=== PATIENT | male | born 1990 | race Caucasian/White ===

== ENCOUNTER 2021-05-16 18:50 | Emergency (ER) | payer OTHER, SELFPAY ==
[2021-05-16 18:55] VITALS: BP 142/84; PULSE 83; RESP 18; TEMP 36.3; O2SAT 99; BMI 33.9
--- NOTE | 2021-05-16 19:05 | DI.RAD.S_ITS ---
PROCEDURE: XR FOOT RT MIN 3V INDICATIONS: lateral foot pain TECHNIQUE: 3 views of the foot were acquired. COMPARISON: None. FINDINGS: Bones: There is a nondisplaced proximal 4th metatarsal fracture. No intra-articular extension. Soft tissues: No tibiotalar joint effusion. Achilles tendon appears normal. IMPRESSION: Nondisplaced proximal 4th metatarsal fracture Dictated by: Kelli Márquez M.D. on 05/16/2021 at 19:55 Approved by: Kelli Márquez M.D. on 05/16/2021 at 19:56
--- NOTE | 2021-05-16 19:05 | ED.LOWEXIN ---
HPI - Extremity Injury (Lower) General Chief Complaint: Extremity Injury, Lower Stated Complaint: RIGHT FOOT HEARD HUGE POP HURTS Time Seen by Provider: 05/16/21 18:56 Source: patient Mode of arrival: Ambulatory Limitations: no limitations History of Present Illness HPI Narrative: Patient is a 31-year-old male who presents with right foot pain. He was in his kitchen when he heard a pop near his little toe on the bottom It hurts ambulating but he is able to do so. No other injury. He has no numbness or tingling. He has not taken anything for pain. Related Data Previous Rx's Medication Instructions Recorded hydrocodone 5 mg-acetaminophen 325 1 tab PO Q6H PRN #10 tab 05/16/21 mg tablet Allergies Allergy/AdvReac Type Severity Reaction Status Date / Time No Known Drug Allergies Allergy Verified 05/16/21 18:57 Review of Systems Review of Systems Narrative: GENERAL: Denies chills,fever HEENT: Denies throat pain RESPIRATORY: Denies dyspnea, cough, wheezing CARDIOVASCULAR: Denies chest pain, palpitations GASTROINTESTINAL: Denies nausea, vomiting MUSCULOSKELETAL: See HPI SKIN: No rash, no laceration, no pruritus NEUROLOGIC: Denies weakness, dizziness, headache, numbness 8 point review of systems is negative except for those stated above and HPI Patient History Social History Smoking Status: Former smoker Smoking Status: Former smoker alcohol intake frequency: 0-2 drinks per day Substance Use Type: does not use Exam Initial Vital Signs Initial Vital Signs: Vital Signs Temperature 97.4 F L 05/16/21 18:55 Pulse Rate 83 05/16/21 18:55 Respiratory Rate 18 05/16/21 18:55 Blood Pressure 142/84 H 05/16/21 18:55 Pulse Oximetry 99 05/16/21 18:55 GENERAL: Alert well-appearing 31-year-old male CARDIOVASCULAR: peripheral pulses in tact, cap refill <2 sec RESPIRATORY: No respiratory distress, speaks in full sentences without difficulty EXTREMITIES: Normal range of motion, no clubbing or edema. Neurovascularly intact Right foot no contusions swelling or erythema. No significant tenderness over 5th toe. Tenderness more over 4th metatarsal with out obvious bony deformity. Distal pedal pulse intact. Normal ankle Achilles intact. Able to flex and extend big toe against resistance NEUROLOGICAL: Cranial nerves II through XII grossly intact. Normal gait and speech. SKIN: Warm, dry, no petechiae, no rashes or lesions. Procedures Orthopedic Splinting/Casting Injury #1: Side: right Lower Extremity Injury Location: toe (4th metatarsal) Lower Extremity Immobilizer: posterior splint Post splinting neuro exam: intact Post splinting vascular exam: intact Placed by: Nursing Course Orders Ordered: ED Orders 05/16/21 19:05 XR foot RT min 3V Stat Discontinued Medications Hydrocodone Bitart/Acetaminophen (Hydrocodone/Acet 5/325 Prepack) 1 bottle MISC SEEINSTR ONE Stop: 05/16/21 20:39 Last Admin: 05/16/21 20:48 Dose: 1 bottle Documented by: JARRELL Vital Signs Vital signs: Vital Signs - 8 hr 05/16/21 18:55 Temperature 97.4 F L Pulse Rate 83 Respiratory Rate 18 Blood Pressure 142/84 H Pulse Oximetry 99 [facility] - Extremity Injury (Lower) Imaging Data Extremity x-ray #1: Radiologist's Impression: PROCEDURE:? XR FOOT RT MIN 3V ? INDICATIONS:? lateral foot pain ? TECHNIQUE:? 3 views of the foot were acquired.? ? COMPARISON:? None. ? FINDINGS:? ? Bones:? There is a nondisplaced proximal 4th metatarsal fracture.? No intra-articular extension. ? Soft tissues:? No tibiotalar joint effusion.? Achilles tendon appears normal.? ? ? IMPRESSION:? Nondisplaced proximal 4th metatarsal fracture ? ? Dictated by: Kelli Márquez M.D. on 05/16/2021 at 19:55 ? ? Approved by: Kelli Márquez M.D. on 05/16/2021 at 19:56 ? [facility] Narrative Medical decision making narrative: Patient is found to have nondisplaced 4th metatarsal fracture. Patient is placed in a posterior splint given crutches instructed not to weightbear. He needs to follow up with Orthopedics. He may also require a note for work restrictions. Discharge Plan Departure Patient Disposition: Home Clinical Impression: Closed fracture of fourth metatarsal bone Qualifiers: Encounter type: initial encounter Fracture alignment: nondisplaced Laterality: right Qualified Code(s): S92.344A - Nondisplaced fracture of fourth metatarsal bone, right foot, initial encounter for closed fracture Instructions: DI for Toe Fracture Activity Restrictions/Additional Instructions: *You have been diagnosed with right 4th toe fracture *What to do: Keep splint on at all times. Use crutches do not is put weight on foot. May elevate and ice as needed. This will take 6-8 weeks to heal *Continue to take medications as directedSENT TO [facility]ON[facility] Tylenol 1000 mg every 6 hours if needed for pain (no more than 4000 mg in 1 day and no more than 1000mg at 1 time) [place] 1 tab every 6 hours if needed for severe pain (this has 325 mg of Tylenol in it, see above instructions *Follow up with your primary care provider in 2-3 days Call orthopedics tomorrow to schedule follow-up appointment *Return to ER if you should have increasing pain swelling numbness tingling any new, worsening or concerning symptoms CONTROLLED SUBSTANCE DISCHARGE (Narcotoic/benzodiazepine/Flexeril/Phenergan) 1. You have been prescribed narcotic medications, it does have acetaminophen/Tylenol/paracetamol in it, DO NOT TAKE MORE THAN 4,00mg in 24 hours of Tylenol. TRAMADOL DOES NOT CONTAIN TYLENOL 2. Please understand that we cannot provide further refills of narcotics, benzodiazepines or controlled substances through the ED and her pain management will need to be through your provider. 3. While on these medications you cannot drive or operate heavy machinery. 4. You cannot sign legal documents or perform any duties such as this. 5. As long as you're taking opiate pain medications he should also be taking a stool softener such as Colace, Dulcolax, MiraLAX or prune juice, to help avoid constipation. Prescriptions: New hydrocodone-acetaminophen 5-325 mg tablet 1 tab PO Q6H PRN (Reason: pain) Qty: 10 RF: 0 Referrals: [facility] [Provider Group] Merged With [facility] [Outside]
[2021-05-16] MEDS: HYDROCODONE/ACET 5/325 PREPACK 1 BOTTLE MISC (20:48)
== END 2021-05-16 20:48 | disposition home or self-care (01) ==
PROVIDERS: Emergency Provider Emergency Medicine
DX: S92.344A Nondisplaced fracture of fourth metatarsal bone, right foot, initial encounter for closed fracture (principal)
CPT/HCPCS: 73630; 99283

== ENCOUNTER → 2022-07-14 15:18 | Outpatient (CLI) | payer OTHER, SELFPAY ==
[2022-07-14 16:21] LABS: Add Manual Diff / Slide Review NO; Basophils Absolute Auto 0 /uL (0-100); Basophils Percent Auto 0.5 % (0-2); Eosinophils Absolute Auto 100 /uL (0-450); Eosinophils Percent Auto 1.7 % (2-4); Hematocrit 45.7 % (41-53); Hemoglobin 15.2 g/dL (13.5-17.5); Lymphocytes Absolute Auto 2000 /uL (1100-4500); Lymphocytes Percent Auto 24.5 % (25-40); Mean Corpuscular HGB Conc 33.2 % (30-36); Mean Corpuscular Hemoglobin 31.4 PG (26-34); Mean Corpuscular Volume 94.6 fL (80-100); Monocytes Absolute Auto 600 /uL (0-900); Monocytes Percent Auto 7.4 % (3-14); Neutrophils Absolute Auto 5300 /uL (1500-7000); Neutrophils Percent Auto 65.9 % (50-75); Platelet Count 304 X10^3/uL (150-400); Red Blood Cell Count 4.83 X10^6/uL (4.5-5.9); Red Cell Distribution Width 13.7 % (11.6-14.8)
[2022-07-14 16:36] LABS: Alanine Aminotransferase 23 IU/L (<50); Albumin 4.8 g/dL (3.5-5.0); Albumin Globulin Ratio 1.4 (1.0-2.8); Alkaline Phosphatase 77 U/L (38-126); Aspartate Aminotransferase 37 IU/L (17-59); BUN Creatinine Ratio 21.3 (6-22); Bilirubin Total 0.5 mg/dL (0.2-1.3); Blood Urea Nitrogen 17 mg/dL (9-20); Calcium 9.5 mg/dL (8.4-10.2); Carbon Dioxide 32 mmol/L (22-32); Chloride 100 mmol/L (98-107); Cholesterol 171 mg/dL (140-199); Estimated Glomerular Filt Rate > 60 mL/min (>60); Globulin 3.4 g/dL (1.7-4.1); Glucose 88 mg/dL (70-100); HDL Cholesterol 81 mg/dL (40-60); HEMOLYSIS 20 (0-50); LDL Cholesterol Calculated 76 mg/dL (<100); Potassium 4.1 mmol/L (3.4-5.1); Sodium 142 mmol/L (137-145); Total Protein 8.2 g/dL (6.3-8.2); Triglycerides 69 mg/dL (35-150)
[2022-07-14 17:20] LABS: TSH w/ Reflex to FT4 0.68 uIU/mL (0.47-4.68)
[2022-07-22 12:36] LABS: Percent Free Testosterone 2.72 % (1.50-4.20); Testosterone Free 36.74 ng/dL (5.00-21.00); Testosterone Total 1350.7 ng/dL (264.0-916.0)
== END ==
PROVIDERS: PCP Family Medicine; Referring Provider Family Medicine; Visit Provider Family Medicine
DX: R71.8 Other abnormality of red blood cells (principal); R97.20 Elevated prostate specific antigen [PSA]; Z12.5 Encounter for screening for malignant neoplasm of prostate; R53.83 Other fatigue
CPT/HCPCS: 36415; 80053; 80061; 84402; 84403; 84443; 85025; G0103

== ENCOUNTER → 2023-09-19 14:03 | Outpatient (CLI) | payer OTHER, SELFPAY ==
[2023-09-19 15:35] LABS: Influenza A - CEPHEID Flu A NEGATIVE (NEGATIVE); Influenza B - CEPHEID Flu B NEGATIVE (NEGATIVE); Respiratory Syncytial Virus Negative (Negative)
[2023-09-19 16:36] LABS: COVID-19 CEPHEID 4-PLEX PCR Negative (Negative)
== END ==
PROVIDERS: PCP Family Medicine; Visit Provider Nurse Practitioner Family
DX: R05.1 Acute cough (principal)
CPT/HCPCS: 0241U

== ENCOUNTER 2024-05-07 21:42 | Emergency (ER) | payer OTHER, SELFPAY ==
[2024-05-07 21:51] VITALS: BMI 33.9
--- NOTE | 2024-05-07 22:07 | ED.PSYCH ---
HPI - Psych General Chief Complaint: Psychiatric Symptoms Stated Complaint: etoh, self harm, uncooperative Time Seen by Provider: 05/07/24 21:53 Source: police Mode of arrival: other Limitations: no limitations History of Present Illness HPI Narrative: 34-year-old male who states he has had alcohol this evening. Law enforcement encountered him outside his home, states that there was blood on the patient, on house. They went inside the house to evaluate if anyone was inside in danger and noted blood around the house. They state patient has not been very cooperative this evening. He does admit to EtOH use. Patient states he does not want to harm himself. He has cuts on his hands he states that he thinks that is where the blood is from. He denies any other injuries that he is aware of. He does not wish to be in the department. Related Data Home Medications Medication Instructions Recorded Confirmed dextroamphetamine-amphetamine 10 1 tab PO DAILY 05/07/24 05/07/24 mg tablet dextroamphetamine-amphetamine ER 1 cap PO QAM 05/07/24 05/07/24 20 mg 24hr capsule,extend release hydroxyzine HCl 25 mg tablet 25 mg PO Q6H PRN panic attack 05/07/24 05/07/24 venlafaxine 150 mg 150 mg PO DAILY anxiety 05/07/24 05/07/24 capsule,extended release 24 hr (Effexor XR) Previous Rx's Medication Instructions Recorded benzonatate 100 mg capsule 100 mg PO BID PRN cough #20 caps 09/19/23 Allergies Allergy/AdvReac Type Severity Reaction Status Date / Time No Known Drug Allergies Allergy Verified 09/19/23 13:49 Review of Systems Review of Systems ROS Unobtainable: All systems reviewed & are unremarkable except as noted in HPI and below Patient History Medical History Anxiety (~2001) ADHD (~2001) Elevated testosterone level in male Fatigue Hypogonadism Elevated PSA Elevated red blood cell count Surgical History Anesthesia History of foot surgery Social History Smoking Status: Former smoker Smoking Status: Former smoker alcohol intake frequency: 0-2 drinks per day Substance Use Type: does not use Exam Narrative Exam Narrative: GEN: Well-appearing intoxicated male, alert and oriented, patient appears to be in moderate distress. He is in a T-shirt and shorts and flip-flops HEENT: Atraumatic except for superficial abrasion on anterior forehead that is less than 0.25 cm with no dried blood surrounding or hematoma, pupils are equal round reactive to light, extraocular movements are intact, nares are clear, TMs are clear with no fluid, there is no conjunctival pallor. Throat is clear without any exudates, erythema, tonsillar enlargement or uvular deviation HEART: Regular rate and rhythm without murmur, clicks, rubs. No carotid bruits, pulses are equal in upper and lower extremities LUNGS:Lungs clear to auscultation, no wheezes, rales, crackles, chest moves symmetrically ABD:bowel sounds normal, soft, non-tender, no guarding, rebound, rigidity, no masses noted, no hepatosplenomegaly :No CVA tenderness. MSCL: Non-tender, no muscle atrophy, muscles strength 5/5 upper and lower extremities, full range of motion, patient has some superficial abrasions/cuts on the palms of his appear to be the source of his bleeding at his dried and stopped. Nothing that appears deep enough to require sutures. Examination patient's torso and extremities does not show any other source of injury cuts or bleeding. NEURO:CN 2-12 intact, sensation normal. Initial Vital Signs Initial Vital Signs: Vital Signs Temperature 98.5 F 05/07/24 22:30 Pulse Rate 88 05/07/24 22:30 Respiratory Rate 20 05/07/24 22:30 Blood Pressure 130/74 05/07/24 22:30 Pulse Oximetry 97 05/07/24 22:30 Oxygen Delivery Method Room Air 05/07/24 22:30 Course Orders Ordered: ED Orders 05/07/24 22:25 Acetaminophen Stat Complete Blood Count AUTO DIFF Stat Comprehensive Metabolic Panel Stat Ethanol (ETOH) Stat Free T4, Direct Thyroxine Stat Salicylate Stat Thyroid Stimulating Hormone Stat 05/07/24 22:39 Urine Drug Screen, Rapid Stat Discontinued Medications Haloperidol (Haloperidol 5 Mg/Ml Vial) 2 mg IV NOW ONE Stop: 05/07/24 21:57 Last Admin: 05/07/24 22:00 Dose: Not Given Documented By: AB Lorazepam (Lorazepam 2 Mg/Ml Inj) 2 mg IV NOW ONE Stop: 05/07/24 21:54 Last Admin: 05/07/24 22:00 Dose: Not Given Documented By: AB Vital Signs Vital signs: Vital Signs - 8 hr 05/07/24 22:30 Temperature 98.5 F Pulse Rate 88 Respiratory Rate 20 Blood Pressure 130/74 Pulse Oximetry 97 Oxygen Delivery Method Room Air MDM - Psych Lab Data 05/07/24 22:25 05/07/24 22:25 Labs: Lab Results 05/07/24 05/07/24 Range/Units 22:25 22:39 WBC 8.5 (4.5-11.0) X10^3/uL RBC 4.98 (4.5-5.9) X10^6/uL Hgb 16.5 (13.5-17.5) g/dL Hct 48.0 (41-53) % MCV 96.3 (80-100) fL MCH 33.0 (26-34) PG MCHC 34.3 (30-36) % RDW 12.6 (11.6-14.8) % Plt Count 292 (150-400) X10^3/uL Neut % (Auto) 62.3 (50-75) % Lymph % (Auto) 28.2 (25-40) % [place] % (Auto) 6.0 (3-14) % Eos % (Auto) 2.9 (2-4) % Baso % (Auto) 0.6 (0-2) % Neut # (Auto) 5300 (6991-9524) /uL Lymph # (Auto) 2400 (7793-9909) /uL [place] # (Auto) 500 (0-900) /uL Eos # (Auto) 200 (0-450) /uL Baso # (Auto) 0 (0-100) /uL Sodium 146 H (137-145) mmol/L Potassium 4.3 (3.4-5.1) mmol/L Chloride 106 (98-107) mmol/L Carbon Dioxide 28 (22-32) mmol/L BUN 12 (9-20) mg/dL Creatinine 0.82 (0.66-1.25) mg/dL Estimated GFR > 60 (>60) mL/min BUN/Creatinine Ratio 14.6 (6-22) Glucose 94 (70-100) mg/dL Calcium 9.1 (8.4-10.2) mg/dL Total Bilirubin 0.5 (0.2-1.3) mg/dL AST 92 H (17-59) IU/L ALT 66 H (<50) IU/L Alkaline Phosphatase 78 (38-126) U/L Total Protein 8.0 (6.3-8.2) g/dL Albumin 4.9 (3.5-5.0) g/dL Globulin 3.1 (1.7-4.1) g/dL Albumin/Globulin Ratio 1.6 (1.0-2.8) TSH 1.59 (0.47-4.68) uIU/mL Free T4 0.81 (0.78-2.19) ng/dL Salicylates < 1.0 (<20) mg/dL U Opiates 300ng/mL cut Negative (Negative) Ur Oxycodone Screen Negative (Negative) Urine Methadone Screen Negative (Negative) Acetaminophen < 10 (10-30) ug/mL Ur Barbiturates Screen Negative (Negative) U Tricyclic Antidepress Negative (Negative) Ur Phencyclidine Scrn Negative (Negative) Ur Amphetamines Screen Positive H (Negative) U Methamphetamines Scrn Negative (Negative) Ur MDMA Scrn (Ecstasy) Negative (Negative) U Benzodiazepines Scrn Negative (Negative) Urine Cocaine Screen Negative (Negative) U Marijuana (THC) Screen Negative (Negative) Urine pH TNP Urine Specific [place] TNP Ethyl Alcohol 223 H ( - 10) mg/dL Ur Creatinine TNP Urine Dip Bedside Urine Glucose Negative Bedside Urine Bilirubin - Negative Bedside Urine Ketone - Negative Urine Specific [place] 1.015 Bedside Urine Occult Blood - Negative Bedside Urine pH 6.0 Bedside Urine Protein - Negative Bedside Urine Urobilinogen - Negative Bedside Urine Nitrite - Negative Bedside Urine Leukocytes - Negative Esterase MDM Narrative Medical decision making narrative: 34-year-old brought in by law enforcement for concern for alcohol intoxication and possible self injury. Patient has not made any statements in the department about injuring himself, states he does have some cuts on his hand. Law enforcement noted some blood outside and inside the house. Besides the cut some patient's hands no other source is found on his body on evaluation. He has been more cooperative here for us then for law enforcement. White count 8.5 hemoglobin of 16.5 platelets are 292. Sodium 146, potassium 4.3 chloride of 106 CO2 of 28 BUN 12 creatinine 0.82 glucose of 94, AST is 92 ALT 66, total bili is 0.5, TSH is 1.593 T4 0.81. Tylenol, salicylates are negative. ETOH is 223. UDS was positive for amphetamines. Patient did refuse any medications but has been overall cooperative otherwise so these were deferred. On recheck patient has been sleeping throughout his stay. 0541: Patient is alert, appropriate able to ambulate safely. He would like to discharge home. He does not have thoughts of harming himself or others. He has been cooperative throughout the night and felt appropriate for discharge. Discharge Plan Departure Patient Disposition: Home Clinical Impression: Alcohol intoxication Activity Restrictions/Additional Instructions: Please return for any new or concerning changes, any signs of infection your hands or other new issues. Prescriptions: No Action benzonatate 100 mg capsule 100 mg PO BID PRN (Reason: cough) Qty: 20 0RF dextroamphetamine-amphetamine 10 mg tablet 1 tab PO DAILY venlafaxine [Effexor XR] 150 mg capsule,extended release 24hr 150 mg PO DAILY dextroamphetamine-amphetamine 20 mg capsule,extended release 24hr 1 cap PO QAM hydroxyzine HCl 25 mg tablet 25 mg PO Q6H PRN (Reason: panic attack) Referrals: Ignacio Aceves DO [Primary Care Provider] - Stand Alone Forms: Patient Portal/API
[2024-05-07 22:30] VITALS: BP 130/74; PULSE 88; RESP 20; TEMP 36.9; O2SAT 97
[2024-05-07 22:31] LABS: Add Manual Diff / Slide Review NO; Basophils Absolute Auto 0 /uL (0-100); Basophils Percent Auto 0.6 % (0-2); Eosinophils Absolute Auto 200 /uL (0-450); Eosinophils Percent Auto 2.9 % (2-4); Hemoglobin 16.5 g/dL (13.5-17.5); Lymphocytes Absolute Auto 2400 /uL (1100-4500); Lymphocytes Percent Auto 28.2 % (25-40); Mean Corpuscular HGB Conc 34.3 % (30-36); Mean Corpuscular Volume 96.3 fL (80-100); Monocytes Absolute Auto 500 /uL (0-900); Neutrophils Absolute Auto 5300 /uL (1500-7000); Neutrophils Percent Auto 62.3 % (50-75); Platelet Count 292 X10^3/uL (150-400); Red Blood Cell Count 4.98 X10^6/uL (4.5-5.9); Red Cell Distribution Width 12.6 % (11.6-14.8); White Blood Cell Count 8.5 X10^3/uL (4.5-11.0)
[2024-05-07 22:47] LABS: Acetaminophen < 10 ug/mL (10-30); Alanine Aminotransferase 66 IU/L (<50); Albumin 4.9 g/dL (3.5-5.0); Albumin Globulin Ratio 1.6 (1.0-2.8); Alkaline Phosphatase 78 U/L (38-126); Aspartate Aminotransferase 92 IU/L (17-59); BUN Creatinine Ratio 14.6 (6-22); Bilirubin Total 0.5 mg/dL (0.2-1.3); Blood Urea Nitrogen 12 mg/dL (9-20); Calcium 9.1 mg/dL (8.4-10.2); Carbon Dioxide 28 mmol/L (22-32); Chloride 106 mmol/L (98-107); Estimated Glomerular Filt Rate > 60 mL/min (>60); Ethanol (ETOH) 223 mg/dL; Globulin 3.1 g/dL (1.7-4.1); Glucose 94 mg/dL (70-100); HEMOLYSIS 32 (0-50); Potassium 4.3 mmol/L (3.4-5.1); Salicylate < 1.0 mg/dL (<20); Sodium 146 mmol/L (137-145)
[2024-05-07 23:04] LABS: UR Morphine/Opiate cutoff 300 Negative (Negative); Urine Amphetamines Positive (Negative); Urine Barbiturates Negative (Negative); Urine Benzodiazepines Negative (Negative); Urine Cocaine Negative (Negative); Urine MDMA Negative (Negative); Urine Methadone Negative (Negative); Urine Methamphetamines Negative (Negative); Urine Oxycodone Negative (Negative); Urine Phencyclidine Negative (Negative); Urine Tetrahydrocannabinol Negative (Negative); Urine Tricyclic Antidepressant Negative (Negative)
[2024-05-07 23:46] LABS: Free T4, Direct Thyroxine 0.81 ng/dL (0.78-2.19)
[2024-05-08] LABS: Thyroid Stimulating Hormone 1.59 uIU/mL (0.47-4.68)
[2024-05-08 06:00] VITALS: BP 138/72; PULSE 68; RESP 20; TEMP 36.5; O2SAT 97
== END 2024-05-08 05:54 | disposition home or self-care (01) ==
PROVIDERS: Emergency Provider Emergency Medicine; PCP Family Medicine
DX: F10.129 Alcohol abuse with intoxication, unspecified (principal); Y90.7 Blood alcohol level of 200-239 mg/100 ml
CPT/HCPCS: 36415; 80053; 80305; 80320; 80329; 81003; 84439; 84443; 85025; 99283; 99284; G0480